=== PATIENT | male | born 1955 | race African-American/Black ===

== ENCOUNTER 2018-09-03 04:13 | Observation (INO) | END 2018-09-03 15:58 | disposition home or self-care (01) ==

== ENCOUNTER 2018-09-04 08:43 | Emergency (ER) | END 2018-09-04 10:47 | disposition home or self-care (01) ==

== ENCOUNTER 2018-09-09 18:37 | Emergency (ER) | END 2018-09-09 23:53 | disposition home or self-care (01) ==

== ENCOUNTER 2018-09-12 18:05 | Emergency (ER) | END 2018-09-12 20:43 | disposition home or self-care (01) ==

== ENCOUNTER 2018-09-13 13:08 | Emergency (ER) | END 2018-09-13 18:31 | disposition home or self-care (01) ==

== ENCOUNTER 2018-09-15 17:45 | Emergency (ER) | END 2018-09-15 20:13 | disposition home or self-care (01) ==

== ENCOUNTER 2018-11-05 23:57 | Emergency (ER) | payer MEDICARE, OTHER ==
[~2018-11-05] VITALS: Wt 71.5 kg
[~2018-11-05 23:57] MED LIST: IBUP-1542 PO; OXYC-279 PO; OXYC30TA PO; OXYC30TA64 PO; SULF1TAB31 PO
[2018-11-06] MEDS ORDERED: BACITRACIN 0.9 GM OINT TOP ONE (03:00)
[2018-11-06] MEDS ORDERED: MUPI22OI2 TOP (03:14)
--- NOTE | 2018-11-06 03:45 | ERD ---
ER Documentation Chief Complaint Chief Complaint MED REFILL HPI 63-year-old male presents to the emergency department complaining of a wound on his left knee for the past few weeks. Patient was evaluated at this facility on September 02 first for a ground-level fall on the left knee. Patient presents requesting prescription for aloe vera plant. Patient denies wrist range of motion. Denies any fevers. ROS All systems reviewed and are negative except as per history of present illness. Medications Home Meds Active Scripts Mupirocin* (Bactroban*) 2% -22 Gram Oint...g., 1 APPLIC TOP BID for 7 Days, EA Prov:WOJCIECH ORNELAS PA-C 11/06/18 Ibuprofen* (Motrin*) 600 Mg Tab, 600 MG PO Q6, #20 TAB Prov:MICHI ATKINSON MD 11/03/18 Oxycodone HCl/Acetaminophen (Percocet 5-325 mg Tablet) 1 Each Tablet, 1 EACH PO TID, #7 TAB Prov:MICHI ATKINSON MD 11/03/18 Oxycodone HCl/Acetaminophen (Percocet 5-325 mg Tablet) 1 Each Tablet, 1 EACH PO QID, #12 TAB Prov:MICHI ATKINSON MD 09/15/18 Oxycodone Hcl* (Oxycontin*) 30 Mg Tab.sr.12h, 30 MG PO Q12, #10 TAB Prov:JUNIE MARKHAM PA-C 09/13/18 Oxycodone HCl/Acetaminophen (Percocet 5-325 mg Tablet) 1 Each Tablet, 1 EACH PO Q6, #7 TAB Prov:MONIQUE YOUNG PA-C 09/12/18 Sulfamethoxazole/Trimethoprim* (Bactrim Ds* Tablet) 1 Each Tablet, 1 TAB PO BID for 2 Days, #4 TAB Prov:HUSEYIN REVELES DO 09/09/18 Oxycodone Hcl* (Oxycontin*) 30 Mg Tab.sr.12h, 30 MG PO Q12 PRN for PAIN, #14 TAB Prov:HUSEYIN REVELES DO 09/09/18 Sulfamethoxazole/Trimethoprim* (Bactrim Ds* Tablet) 1 Each Tablet, 1 TAB PO BID, #14 TAB Prov:BALTAZAR SCHNEIDER MD 09/03/18 Oxycodone Hcl* (IR) (Oxycodone Hcl*) 30 Mg Tablet, 30 MG PO Q4H PRN for PAIN, #40 TAB Prov:BALTAZAR SCHNEIDER MD 09/03/18 Allergies Allergies: Coded Allergies: No Known Allergy (Unverified , 09/09/18) PMhx/Soc History of Surgery: Yes (L Orbital/Facial Fx) Anesthesia Reaction: No Hx Neurological Disorder: No Hx Respiratory Disorders: No Hx Cardiac Disorders: Yes (HTN) Hx Psychiatric Problems: Yes (Anxiety) Hx Miscellaneous Medical Probl: No Hx Alcohol Use: No Hx Substance Use: Yes (Marijuana) Hx Tobacco Use: No Smoking Status: Unknown if ever smoked Physical Exam Vitals Vital Signs Date Temp Pulse Resp B/P (MAP) Pulse Ox O2 O2 Flow FiO2 Time Delivery Rate 11/06/18 99.9 115 18 172/96 96 00:03 (121) Physical Exam Const: No acute distress Head: Atraumatic Eyes: Normal Conjunctiva ENT: Normal External Ears, Nose and Mouth. Neck: Full range of motion. No meningismus. Resp: Clear to auscultation bilaterally Cardio: Regular rate and rhythm, no murmurs Abd: Soft, non tender, non distended. Normal bowel sounds Skin: No petechiae or rashes Back: No midline or flank tenderness Ext: Full range of motion of bilateral extremities, no calf tenderness, ulcerative skin lesion on the left knee Neur: Awake and alert Psych: Normal Mood and Affect Results 24 hrs Current Medications Medications Dose Sig/Kelsea Start Time Status Last (Trade) Ordered Route PRN Stop Time Admin Dose Reason Admin Bacitracin 1 applic ONCE ONCE 11/06/18 DC 11/06/18 (Bacitracin TOP 03:00 11/06/18 03:19 Oint (Ud)) 03:01 Procedures/MDM This is a 63-year-old male presenting with simple skin ulcer on the left knee d oes not appear infected from a ground-level fall that occurred last month, patient was already evaluated at this facility and I reviewed his chart. I have suggested for patient to follow-up the pharmacy informatics specialist for further management. Patient was given prescription for Bactroban, dressing was applied and he stable to be discharged home. Return precautions have been given Departure Diagnosis: Primary Impression: Ulcer Condition: Stable Patient Instructions: Skin Ulcer, Simple Referrals: [facility] Additional Instructions: FOLLOW UP WITH YOUR PRIMARY CARE PHYSICIAN TOMORROW.Return to this facility if you are not improving as expected. Take all medicines as directed. Return to this facility if you are not improving as expected. WOJCIECH ORNELAS PA-C Nov 06, 2018 03:45
[2018-11-06 03:55] VITALS: BP 165/84; PULSE 89; RESP 18
== END 2018-11-06 04:02 | disposition home or self-care (01) ==
LOC: FTE 23:57
DX: L98.499 Non-pressure chronic ulcer of skin of other sites with unspecified severity (principal); I10 Essential (primary) hypertension
CPT/HCPCS: 99283

== ENCOUNTER 2018-11-22 22:28 | Emergency (ER) | payer MEDICARE, OTHER ==
[~2018-11-22] VITALS: Wt 67.9 kg
[~2018-11-22 22:28] MED LIST changes: +MUPI22OI2 TOP
[2018-11-23 03:15] VITALS: BP 118/87; PULSE 96; RESP 16
--- NOTE | 2018-11-24 14:20 | ERD ---
ER Documentation Chief Complaint Chief Complaint SOB X'S 1 DAY HPI 63-year-old male patient with a previous history of rib fracture, liver contusion presents to the ED stating that he would like a prescription for oxygen because he wants his breathing to be "extraordinary". Patient reports that he has no chest pain, currently does not have any shortness of breath, dyspnea on exertion, abdominal pain, nausea, vomiting, diarrhea, neck stiffness. Denies any suicidal or homicidal ideations. ROS All systems reviewed and are negative except as per history of present illness. Medications Home Meds Active Scripts Mupirocin* (Bactroban*) 2% -22 Gram Oint...g., 1 APPLIC TOP BID for 7 Days, EA Prov:WOJCIECH ORNELAS PA-C 11/06/18 Ibuprofen* (Motrin*) 600 Mg Tab, 600 MG PO Q6, #20 TAB Prov:MICHI ATKINSON MD 11/03/18 Oxycodone HCl/Acetaminophen (Percocet 5-325 mg Tablet) 1 Each Tablet, 1 EACH PO TID, #7 TAB Prov:MICHI ATKINSON MD 11/03/18 Oxycodone HCl/Acetaminophen (Percocet 5-325 mg Tablet) 1 Each Tablet, 1 EACH PO QID, #12 TAB Prov:MICHI ATKINSON MD 09/15/18 Oxycodone Hcl* (Oxycontin*) 30 Mg Tab.sr.12h, 30 MG PO Q12, #10 TAB Prov:JUNIE MARKHAM PA-C 09/13/18 Oxycodone HCl/Acetaminophen (Percocet 5-325 mg Tablet) 1 Each Tablet, 1 EACH PO Q6, #7 TAB Prov:MONIQUE YOUNG PA-C 09/12/18 Sulfamethoxazole/Trimethoprim* (Bactrim Ds* Tablet) 1 Each Tablet, 1 TAB PO BID for 2 Days, #4 TAB Prov:HUSEYIN REVELES DO 09/09/18 Oxycodone Hcl* (Oxycontin*) 30 Mg Tab.sr.12h, 30 MG PO Q12 PRN for PAIN, #14 TAB Prov:HUSEYIN REVELES DO 09/09/18 Sulfamethoxazole/Trimethoprim* (Bactrim Ds* Tablet) 1 Each Tablet, 1 TAB PO BID, #14 TAB Prov:BALTAZAR SCHNEIDER MD 09/03/18 Oxycodone Hcl* (IR) (Oxycodone Hcl*) 30 Mg Tablet, 30 MG PO Q4H PRN for PAIN, #40 TAB Prov:BALTAZAR SCHNEIDER MD 09/03/18 Allergies Allergies: Coded Allergies: No Known Allergy (Unverified , 09/09/18) PMhx/Soc History of Surgery: Yes (L Orbital/Facial Fx) Anesthesia Reaction: No Hx Neurological Disorder: No Hx Respiratory Disorders: No Hx Cardiac Disorders: Yes (HTN) Hx Psychiatric Problems: Yes (Anxiety) Hx Miscellaneous Medical Probl: No Hx Alcohol Use: No Hx Substance Use: Yes (Marijuana) Hx Tobacco Use: No Smoking Status: Never smoker FmHx Family History: No diabetes, No coronary disease Physical Exam Vitals Vital Signs Date Temp Pulse Resp B/P (MAP) Pulse Ox O2 O2 Flow FiO2 Time Delivery Rate 11/23/18 96 16 118/87 98 Room Air 03:15 (97) 11/22/18 96.3 106 20 120/88 98 22:30 (99) Physical Exam Const: Gre-fiw-xplilephq, well-nourished. In no acute distress. Head: Atraumatic, normocephalic Eyes: Normal Conjunctiva without injection. No purulent discharge. PERRL. EOMI ENT: Normal external ear. Ear canal without erythema. Tympanic membrane pearly tompkins without effusion or bulging. Nasal canal clear with normal turbinates. Moist oropharynx without tonsillar exudates. Non-erythematous pharynx. Uvula midline. No drooling. No trismus. Neck: Full range of motion. No meningismus. No cervical lymphadenopathy. Resp: Clear to auscultation bilaterally. No wheezing, rhonchi, rales, or crackles. No accessory muscle use. No retractions. Cardio: Regular rate and rhythm. No murmurs, rubs or gallops. Abd: Soft, non tender, non distended. Normal bowel sounds. No palpable masses. No rebound tenderness. No guarding. Skin: No petechiae or rashes Back: No midline tenderness. No CVA tenderness. Ext: No cyanosis, or edema. Neur: Awake and alert. Psych: Normal Mood and Affect Procedures/MDM 63-year-old male patient with a past medical history of fracture in September 2018 presents to the ED stating that he has intermittent shortness of breath. Patient reports that he was seen at [facility] yesterday, got a chest x-ray which was negative for any pneumothorax. Patient again was offered a chest X ray, patient denied wanting at this time. Patient has been seen here previously for similar symptoms. Patient reports that he would like oxygen however patient's pulse oxygenation is 98% which is within normal limits. Patient is speaking in full sentences. Patient is not in respiratory distress. Low suspicion for acute myocardial infarction, pneumothorax, CHF, pericarditis, myocarditis, endocarditis, pneumonia, cardiac tamponade, pulmonary embolism, p leural effusion, AAA, aortic dissection, Boerhaave's syndrome, cardiac dysrhythmias,meningitis, intracranial bleed, seizure, stroke, TIA or other emergent conditions. Diagnosis: Shortness of Breath Follow up with primary care physician in 1-2 days. Instructed patient to return to the ED sooner for any worsening symptoms. Patient's questions were answered. Patient is hemodynamically stable. Patient understood and agreed with discharge plan. Patient discharged stable. Patient reports that he has some more sleep upon discharge. Disclaimer: Inadvertent spelling and grammatical errors are likely due to EHR/dictation software use and do not reflect on the overall quality of patient care. Also, please note that the electronic time recorded on this note does not necessarily reflect the actual time of the patient encounter. Departure Diagnosis: Primary Impression: Shortness of breath Condition: Stable Patient Instructions: Coping with Shortness of Breath: Controlling Stress Referrals: [facility] YOU HAVE RECEIVED A MEDICAL SCREENING EXAM AND THE RESULTS INDICATE THAT YOU DO NOT HAVE A CONDITION THAT REQUIRES URGENT TREATMENT IN THE EMERGENCY DEPARTMENT. FURTHER EVALUATION AND TREATMENT OF YOUR CONDITION CAN WAIT UNTIL YOU ARE SEEN IN YOUR DOCTORS OFFICE WITHIN THE NEXT 1-2 DAYS. IT IS YOUR RESPONSIBILITY TO MAKE AN APPOINTMENT FOR FOLOW-UP CARE. IF YOU HAVE A PRIMARY DOCTOR --you should call your primary doctor and schedule an appointment IF YOU DO NOT HAVE A PRIMARY DOCTOR YOU CAN CALL OUR PHYSICIAN REFERRAL HOTLINE AT IF YOU CAN NOT AFFORD TO SEE A PHYSICIAN YOU CAN CHOSE FROM THE FOLLOWING [facility] [address] [facility]. [facility] [address] [facility] [facility] [facility] [address] [facility] [address] [facility] [address] [facility]. [facility]. [address] [facility]. [facility] YOU HAVE RECEIVED A MEDICAL SCREENING EXAM AND THE RESULTS INDICATE THAT YOU DO NOT HAVE A CONDITION THAT REQUIRES URGENT TREATMENT IN THE EMERGENCY DEPARTMENT. FURTHER EVALUATION AND TREATMENT OF YOUR CONDITION CAN WAIT UNTIL YOU ARE SEEN IN YOUR DOCTORS OFFICE WITHIN THE NEXT 1-2 DAYS. IT IS YOUR RESPONSIBILITY TO MAKE AN APPOINTMENT FOR FOLOW-UP CARE. IF YOU HAVE A PRIMARY DOCTOR --you should call your primary doctor and schedule and appointment IF YOU DO NOT HAVE A PRIMARY DOCTOR YOU CAN CALL OUR PHYSICIAN REFERRAL HOTLINE AT . IF YOU CAN NOT AFFORD TO SEE A PHYSICIAN YOU CAN CHOSE FROM THE FOLLOWING [facility] INSTITUTIONS: [facility] [address] [place] [address] [facility] [address] [place] [address] [facility] + [facility] [address] [place] [address] [facility] Additional Instructions: Call your primary care doctor TOMORROW for an appointment during the next 2-3 days.See the doctor sooner or return here if your condition worsens before your appointment time. OTIS CARABALLO PA-C Nov 24, 2018 14:20
== END 2018-11-23 03:20 | disposition home or self-care (01) ==
LOC: FTE 22:28
DX: R06.02 Shortness of breath (principal); I10 Essential (primary) hypertension
CPT/HCPCS: 99282